=== PATIENT | male | born 1965 | race American Indian/Alaskan Native ===

== ENCOUNTER 2018-03-01 15:57 | Inpatient (IN) | payer BC ==
[2018-03-01 15:57] VITALS: BMI 25.8
--- NOTE | 2018-03-01 16:11 | C.PDOC ---
History Of Present Illness 52 y/o male with history of HTN, Asthma, previous TB presents to ED with c/o sob and tactile fever since this morning. He denies any chest pain. SOB is not similiar to previous asthma attacks. No PND orthopnea or leg swelling. Patient speaking in full sentences and denies cough, congestion, body aches, neck stiffness, leg swelling, recent travel, trauma, dysuria, abdominal pain or any other complaints at this time. Patient non smoker with no history of Stroke or [place]. PMD: Dr. Noguera <Lio Coombs - Last Filed: 03/01/18 18:53> History Per: Patient History/Exam Limitations: no limitations Onset/Duration Of Symptoms: Days Current Symptoms Are (Timing): Still Present <Lio Coombs - Last Filed: 03/01/18 18:53> <Angel Washington - Last Filed: 03/01/18 20:30> Time Seen by Provider: 03/01/18 16:10 Chief Complaint (Nursing): Shortness Of Breath Past Medical History Reviewed: Historical Data, Nursing Documentation, Vital Signs Vital Signs: Last Vital Signs Temp 98.8 F 03/01/18 16:07 Pulse 113 H 03/01/18 16:07 Resp 23 03/01/18 16:07 BP 178/100 H 03/01/18 16:07 Pulse Ox 94 L 03/01/18 16:07 - Medical History PMH: Asthma, Fractures, HTN Surgical History: No Surg Hx - [facility] Procedures CLOSED ENDOSCOPIC BIOPSY OF LUNG (11/18/13) THORACENTESIS (11/18/13) VENOUS CATHETERIZATION NEC (11/18/13) Family History: States: No Known Family Hx - Social History Hx Tobacco Use: No Hx Alcohol Use: No Hx Substance Use: No - Immunization History Hx Tetanus Toxoid Vaccination: No Hx Influenza Vaccination: No Hx Pneumococcal Vaccination: No <Lio Coombs - Last Filed: 03/01/18 18:53> Vital Signs: Last Vital Signs Temp 98.8 F 03/01/18 16:07 Pulse 119 H 03/01/18 19:09 Resp 29 H 03/01/18 19:09 BP 180/99 H 03/01/18 19:09 Pulse Ox 97 03/01/18 19:09 - [facility] Procedures CLOSED ENDOSCOPIC BIOPSY OF LUNG (11/18/13) THORACENTESIS (11/18/13) VENOUS CATHETERIZATION NEC (11/18/13) <Angel Washington - Last Filed: 03/01/18 20:30> Review Of Systems Constitutional: Positive for: Fever. Negative for: Chills, Sweats Eyes: Negative for: Pain ENT: Negative for: Nose Congestion, Mouth Pain Cardiovascular: Negative for: Chest Pain, Palpitations Respiratory: Positive for: Shortness of Breath. Negative for: Cough, SOB with Excertion, Wheezing Gastrointestinal: Negative for: Nausea, Vomiting, Constipation, Melena Genitourinary: Negative for: Dysuria, Frequency, Hematuria, Scrotal Pain Musculoskeletal: Negative for: Neck Pain Skin: Negative for: Rash Neurological: Negative for: Weakness, Headache <Lio Coombs - Last Filed: 03/01/18 18:53> Physical Exam - Physical Exam Appears: Non-toxic, No Acute Distress Skin: Warm, Dry, No Rash Head: Atraumatic, Normacephalic Eye(s): bilateral: Normal Inspection Oral Mucosa: Moist Neck: Normal ROM, Supple, Other (no meningeal signs) Cardiovascular: Rhythm Regular (tachy) Respiratory: Normal Breath Sounds, No Rales, No Rhonchi, No Wheezing Gastrointestinal/Abdominal: Soft, No Tenderness, No Guarding, No Rebound Extremity: Normal ROM, No Pedal Edema, Capillary Refill (<2 seconds) Neurological/Psych: Oriented x3, Normal Speech (Speaking in full sentences), Normal Cognition <Lio Coombs - Last Filed: 03/01/18 18:53> ED Course And Treatment - Laboratory Results Result Diagrams: 03/01/18 17:08 03/01/18 17:08 O2 Sat by Pulse Oximetry: 94 (RA) <Lio Coombs - Last Filed: 03/01/18 18:53> - Laboratory Results Result Diagrams: 03/01/18 17:08 03/01/18 17:08 <Angel Washington - Last Filed: 03/01/18 20:30> Medical Decision Making Medical Decision Makin yr old male w/ hx of asthma, tb, htn presents w/ sob and subjective fevers. Dimer ordered given Tachy to rule out PE, Likely viral URI vs PNA vs PE. NO CP. No SHARMA, orthopnea or PND. No drug use. Plan: CXR, ECG, Flu test, Blood work, IV fluids ECG: Sinus Tachycardia @115 BPM. NO STEMI +FLU Signed out to Dr. Washington pending CT, Re-eval. <Lio Coombs - Last Filed: 03/01/18 18:53> Disposition <Lio Coombs - Last Filed: 03/01/18 18:53> Discussed With : Moreno Noguera Doctor Will See Patient In The: Hospital Counseled Patient/Family Regarding: Diagnosis - Disposition Disposition Time: 20:29 <Angel Washington - Last Filed: 03/01/18 20:30> - Disposition Disposition: HOSPITALIZED Condition: STABLE Forms: [employer] ([place]) - Clinical Impression Clinical Impression: Pleural effusion, Hypotension, Influenza - Scribe Statement The provider has reviewed the documentation as recorded by the Linibryan Resendiz All medical record entries made by the Linibryan were at my direction and personally dictated by me. I have reviewed the chart and agree that the record accurately reflects my personal performance of the history, physical exam, medical decision making, and the department course for this patient. I have also personally directed, reviewed, and agree with the discharge instructions and disposition. <Lio Coombs - Last Filed: 03/01/18 18:53>
[2018-03-01] MEDS ORDERED: Sodium Chloride 0.9% 1,000 ML IV SCH (16:30)
[2018-03-01] MEDS ORDERED: Sodium Chloride 0.9% 1,000 ML ONE (16:57)
[2018-03-01 17:14] LABS: BASO % 0.6 % (0.0-2.0); EOS % 0.5 % (0.0-4.0); HEMOGLOBIN 11.1 g/dL (12.0-18.0); LYMPH # 0.3 K/uL (1.0-4.3); LYMPH % 8.8 % (20.0-40.0); MEAN CELL VOLUME 83.5 fL (80.0-94.0); MEAN CORPUSCULAR HEMOGLOBIN 27.2 pg (27.0-31.0); MEAN CORPUSCULAR HGB CONC 32.6 g/dL (33.0-37.0); MEAN PLATELET VOLUME 7.4 fL (7.2-11.7); MONO # 0.5 K/uL (0.0-0.8); MONO % 14.1 % (0.0-10.0); NEUT # 2.6 K/uL (1.8-7.0); NRBC % 0.3 % (0.0-2.0); PLATELET COUNT 237 K/uL (130-400); RBC 4.07 Mil/uL (4.40-5.90); RED CELL DISTRIBUTION WIDTH 15.5 % (11.5-14.5); WHITE BLOOD COUNT 3.4 K/uL (4.8-10.8)
[2018-03-01 17:25] LABS: BLOOD UREA NITROGEN 12 mg/dL (9-20); CALCIUM 8.5 mg/dl (8.6-10.4); GFR NON-AFRICAN AMERICAN > 60
[2018-03-01 17:26] LABS: ALBUMIN 4.2 g/dL (3.5-5.0); ALT/SGPT 7 U/L (21-72); AST/SGOT 25 U/L (17-59)
[2018-03-01 17:59] LABS: BANDS 5 % (0-2); EOSINOPHIL 1 % (0-4); HYPOCHROMIC SLIGHT; LYMPHOCYTE 7 % (20-40); MICROCYTOSIS SLIGHT; MONOCYTE 8 % (0-10); NEUTROPHIL 79 % (50-75); PLATELET ESTIMATE NORMAL (NORMAL); TOTAL CELLS COUNTED 100
[2018-03-01 18:00] LABS: ROULEAUX FORMATION SLIGHT
--- NOTE | 2018-03-01 18:00 | RAD ---
Date of service: 03/01/2018 HISTORY: sob COMPARISON: Comparison chest and CTA chest dated the 04/01/2015 and 11/17/2013 respectively. TECHNIQUE: Chest PA and lateral FINDINGS: LUNGS: Redemonstrated are stippled calcification in the right lower lung field which corresponds to calcification along the peripheral margin of a chronic pleural fluid collection or empyema and probably some associated pleural thickening. In addition, there is opacification of the left this lung base. This was the site of a large left-sided effusion and atelectasis on prior CT chest and probably represents a similar residual pleural thickening or loculated fluid collection.. Mild biapical pleural thickening PLEURA: As above. No apparent pneumothorax. CARDIOVASCULAR: No significant aortic atherosclerotic calcification present. Normal cardiac size. No pulmonary vascular congestion. OSSEOUS STRUCTURES: No significant abnormalities. VISUALIZED UPPER ABDOMEN: Normal. OTHER FINDINGS: None. IMPRESSION: Redemonstrated are stippled calcification in the right lower lung field which corresponds to calcification along the peripheral margin of a chronic pleural fluid collection or empyema and probably some associated pleural thickening. In addition, there is opacification of the left this lung base. This was the site of a large left-sided effusion and atelectasis on prior CT chest and probably represents a similar residual pleural thickening or loculated fluid collection..
[2018-03-01] MEDS ORDERED: Iodixanol 320 MG/ML 100 ML BOTTLE IV ONE (18:02)
[2018-03-01] MEDS ORDERED: Labetalol 25mg/5ml Syringe IVP STA (18:22)
[2018-03-01] MEDS ORDERED: Labetalol 5mg/ml (4ml) ONE (18:31)
[2018-03-01] MEDS ORDERED: Albuterol HFA 90 mcg/actuation (8 g) IH PRN (21:32)
[2018-03-01] MEDS ORDERED: Albuterol 0.083% Inhal Sol (2.5 mg/3 mL) UD INH PRN (21:32)
[2018-03-01 23:01] VITALS: RESP 20
--- NOTE | 2018-03-02 09:49 | CP.PCM.CON ---
History of Present Illness - History of Present Illness History of Present Illness: complaining of shortness of breath and runny nose 52-year-old male with history of pulmonary TB , asthma and hypertension who presented to emergency room complaining of shortness of breath and fever. Patient found to have influenza A. infection. Review of Systems - Review of Systems All systems: reviewed and no additional remarkable complaints except (shortness of breath and fever) Past Patient History - Infectious Disease Hx of Infectious Diseases: None - Tetanus Immunizations Tetanus Immunization: Unknown - Past Medical History & Family History Past Medical History?: Yes - Past Social History Smoking Status: Never Smoked - CARDIAC Hx Hypertension: Yes - PULMONARY Hx Asthma: Yes - NEUROLOGICAL Hx Neurological Disorder: No - HEENT Hx HEENT Problems: No - ENDOCRINE/METABOLIC Hx Endocrine Disorders: No - HEMATOLOGICAL/ONCOLOGICAL Hx Blood Disorders: No - INTEGUMENTARY Hx Dermatological Problems: No - MUSCULOSKELETAL/RHEUMATOLOGICAL Hx Falls: No Hx Fractures: Yes - GASTROINTESTINAL Hx Gastrointestinal Disorders: No - GENITOURINARY/GYNECOLOGICAL Hx Genitourinary Disorders: No - PSYCHIATRIC Hx Substance Use: No - SURGICAL HISTORY Hx Surgeries: Yes Hx Orthopedic Surgery: Yes Other/Comment: right hand/ wrist surgery - ANESTHESIA Hx Anesthesia: Yes Hx Anesthesia Reactions: No Hx Malignant Hyperthermia: No Meds Allergies/Adverse Reactions: Allergies Allergy/AdvReac Type Severity Reaction Status Date / Time moxifloxacin Allergy Intermediate RASH Verified 03/01/18 16:10 - Medications Medications: Current Medications Acetaminophen (Tylenol 325mg Tab) 650 mg PO Q6 PRN PRN Reason: Fever >100.4 F Last Admin: 03/02/18 01:13 Dose: 650 mg Albuterol (Ventolin Hfa 90 Mcg/Actuation (8 G)) 2 puff IH RQ4 PRN PRN Reason: Shortness of Breath Albuterol Sulfate (Albuterol 0.083% Inhal Lyly (2.5 Mg/3 Ml) Ud) 2.5 mg INH RQ6 PRN PRN Reason: Shortness of Breath Enoxaparin Sodium (Lovenox) 40 mg SC DAILY [facility] Sodium Chloride (Sodium Chloride 0.9%) 1,000 mls @ 100 mls/hr IV .Q10H KAVITA Last Admin: 03/01/18 17:28 Dose: 100 mls/hr Metoprolol Succinate (Toprol Xl) 50 mg PO DAILY [facility] Oseltamivir Phosphate (Tamiflu Cap) 75 mg PO BID [facility]; Protocol Stop: 03/06/18 21:33 Physical Exam - Head Exam Head Exam: ATRAUMATIC, NORMOCEPHALIC - ENT Exam ENT Exam: Mucous Membranes Moist - Respiratory Exam Respiratory Exam: Clear to Auscultation Bilateral - Cardiovascular Exam Cardiovascular Exam: REGULAR RHYTHM - GI/Abdominal Exam GI & Abdominal Exam: Normal Bowel Sounds Results - Vital Signs Recent Vital Signs: Last Vital Signs Temp 99.8 F H 03/01/18 23:25 Pulse 95 H 03/01/18 23:25 Resp 20 03/01/18 23:25 BP 170/94 H 03/01/18 23:25 Pulse Ox 95 03/02/18 01:00 - Labs Result Diagrams: 03/01/18 17:08 03/01/18 17:08 Labs: Laboratory Results - last 24 hr 03/01/18 03/01/18 03/01/18 16:59 17:08 17:08 WBC 3.4 L RBC 4.07 L Hgb 11.1 L Hct 34.0 L MCV 83.5 MCH 27.2 MCHC 32.6 L RDW 15.5 H Plt Count 237 MPV 7.4 Neut % (Auto) 76.0 H Lymph % (Auto) 8.8 L Ness % (Auto) 14.1 H Eos % (Auto) 0.5 Baso % (Auto) 0.6 Neut # (Auto) 2.6 Lymph # (Auto) 0.3 L Ness # (Auto) 0.5 Eos # (Auto) 0.0 Baso # (Auto) 0.0 Neutrophils % (Manual) 79 H Band Neutrophils % 5 H Lymphocytes % (Manual) 7 L Monocytes % (Manual) 8 Eosinophils % (Manual) 1 Platelet Estimate Normal Hypochromasia (manual) Slight Microcytosis (manual) Slight Rouleaux Slight D-Dimer, Quantitative Sodium 136 Potassium 5.0 Chloride 100 Carbon Dioxide 28 Anion Gap 14 BUN 12 Creatinine 1.1 Est GFR ( Amer) > 60 Est GFR (Non-Af Amer) > 60 Random Glucose 104 Calcium 8.5 L Total Bilirubin 0.8 AST 25 ALT 7 L D Alkaline Phosphatase 69 Total Protein 8.3 Albumin 4.2 Globulin 4.1 H Albumin/Globulin Ratio 1.0 Influenza Typ A,B (EIA) Pos for influenza a H 03/01/18 17:15 WBC RBC Hgb Hct MCV MCH MCHC RDW Plt Count MPV Neut % (Auto) Lymph % (Auto) Ness % (Auto) Eos % (Auto) Baso % (Auto) Neut # (Auto) Lymph # (Auto) Ness # (Auto) Eos # (Auto) Baso # (Auto) Neutrophils % (Manual) Band Neutrophils % Lymphocytes % (Manual) Monocytes % (Manual) Eosinophils % (Manual) Platelet Estimate Hypochromasia (manual) Microcytosis (manual) Rouleaux D-Dimer, Quantitative 662 H Sodium Potassium Chloride Carbon Dioxide Anion Gap BUN Creatinine Est GFR ( Amer) Est GFR (Non-Af Amer) Random Glucose Calcium Total Bilirubin AST ALT Alkaline Phosphatase Total Protein Albumin Globulin Albumin/Globulin Ratio Influenza Typ A,B (EIA) Assessment & Plan (1) Influenza Status: Acute Comment: on Tamiflu. Droplet isolation. continue nebulizer treatment (2) Asthma Status: Acute
[2018-03-02] MEDS ORDERED: Enoxaparin 40 mg Syringe SC SCH (10:00)
[2018-03-02] MEDS ORDERED: Metoprolol Succinate 50 mg XL Tab PO SCH (10:00)
--- NOTE | 2018-03-02 12:10 | CT ---
Date of service: 03/01/2018 PROCEDURE: CT Chest with contrast (Pulmonary Angiogram) HISTORY: D-dimer the 6 the the at the base of the heart history very when the outside the RO S1 talk about it with however with a recannulated though all no petechial elevation, sob COMPARISON: Comparison made with chest radiograph earlier same day. Comparison also made with CTA chest dated 11/09/2013 TECHNIQUE: Axial computed tomography images were obtained of the chest in the pulmonary arterial phase of enhancement. Coronal and sagittal reformatted images were created and reviewed. Intravenous contrast dose: 100 cc Visipaque 320 Radiation dose: Total exam DLP = 389.39 mGy-cm. This CT exam was performed using one or more of the following dose reduction techniques: Automated exposure control, adjustment of the mA and/or kV according to patient size, and/or use of iterative reconstruction technique. FINDINGS: PULMONARY ARTERIES: Unremarkable. No pulmonary embolism. Pulmonary trunk appears dilated measuring approximately 3.5 cm; rule out underlying mild pulmonary arterial hypertension.. AORTA: No acute findings. No thoracic aortic aneurysm. Ascending thoracic aorta measures approximately 3.4 cm and descending thoracic aorta measures approximately 2.4 cm. Minor aortic atherosclerotic calcification or mural plaque present. LUNGS: There is what appears to represent chronic pleural thickening right lung base with a peripheral crescentic stable calcifications. Findings likely due to residual of a chronic loculated pleural effusion or empyema that has evolved into granulation tissue with localized pleural thickening. There is also a chronic appearing loculated effusion left lung base decreased in size from prior study. Mild bibasilar atelectasis left greater than right. There are nodular density seen in the left lung apex the 1st measuring approximately 13 mm and the 2nd more inferior and posteriorly located nodule measuring 10 mm. The nodule is associated with the stranding scarring and fibrosis some of which extend to the pleural surfaces. The noted small cavitary lesion left lung apex resolved. Similar foci right lung apex. PLEURAL SPACES: As above. No evidence of pneumothorax HEART: Heart appears enlarged.. No significant pericardial effusion. LYMPH NODES: No lymphadenopathy. Trachea is midline and patent with no obvious endoluminal lesions. BONES, CHEST WALL: Mild multilevel degenerative spondylosis of the thoracic spine OTHER FINDINGS: Low-attenuation lesion measuring 15.6 mm within the posterior margin of the spleen is present. This focus is of uncertain etiology though could represent a hemangioma. Other underlying lesion not excluded. The IMPRESSION: chronic pleural thickening right lung base with a peripheral crescentic stable calcifications. Findings likely due to residual of a chronic loculated pleural effusion or empyema that has evolved into granulation tissue with localized pleural thickening. There is also a chronic appearing loculated effusion left lung base decreased in size from prior study. Mild bibasilar atelectasis left greater than right. There are nodular density seen in the left lung apex the 1st measuring approximately 13 mm and the 2nd more inferior and posteriorly located nodule measuring 10 mm.. The nodule is associated with the stranding scarring and fibrosis some of which extend to the pleural surfaces. The noted small cavitary lesion left lung apex resolved. Similar foci right lung apex. Followup the CT scan in 3 months recommended to assess stability of these nodular densities and exclude underlying neoplasm. Note that this report was placed in PA review folder for followup Low attenuation lesion within the splenic parenchyma of uncertain etiology. Follow-up CT scan at interval could be performed to assess stability.
[2018-03-02] MEDS ORDERED: Albuterol-Ipratrop 3 mg / 0.5 (3 ml) UD INH PRN (13:30)
[2018-03-02] MEDS ORDERED: Influenza Vaccine 60 MCG/0.5 ML SYR (3 yr & up) IM ONE (16:25)
[2018-03-02] MEDS ORDERED: Pneumococcal 23-Valent Vaccine IM ONE (16:25)
[2018-03-02 17:11] VITALS: BP 160/90; PULSE 100
[2018-03-02 18:00] VITALS: TEMP 98.9; O2SAT 96
--- NOTE | 2018-03-02 19:14 | CP.PCM.HP ---
Past Patient History - Infectious Disease Hx of Infectious Diseases: None - Tetanus Immunizations Tetanus Immunization: Unknown - Past Medical History & Family History Past Medical History?: Yes - Past Social History Smoking Status: Never Smoked - CARDIAC Hx Hypertension: Yes - PULMONARY Hx Asthma: Yes - NEUROLOGICAL Hx Neurological Disorder: No - HEENT Hx HEENT Problems: No - ENDOCRINE/METABOLIC Hx Endocrine Disorders: No - HEMATOLOGICAL/ONCOLOGICAL Hx Blood Disorders: No - INTEGUMENTARY Hx Dermatological Problems: No - MUSCULOSKELETAL/RHEUMATOLOGICAL Hx Falls: No Hx Fractures: Yes - GASTROINTESTINAL Hx Gastrointestinal Disorders: No - GENITOURINARY/GYNECOLOGICAL Hx Genitourinary Disorders: No - PSYCHIATRIC Hx Substance Use: No - SURGICAL HISTORY Hx Surgeries: Yes Hx Orthopedic Surgery: Yes Other/Comment: right hand/ wrist surgery - ANESTHESIA Hx Anesthesia: Yes Hx Anesthesia Reactions: No Hx Malignant Hyperthermia: No Meds Home Medications: Home Medication List Medication Instructions Recorded Confirmed Type Losartan [Cozaar] 50 mg PO DAILY #30 tab 03/02/18 Rx Metoprolol Succinate XL [Toprol XL] 50 mg PO DAILY #30 tab 03/02/18 Rx Oseltamivir [Tamiflu Cap] 75 mg PO BID #10 cap 03/02/18 Rx Allergies/Adverse Reactions: Allergies Allergy/AdvReac Type Severity Reaction Status Date / Time moxifloxacin Allergy Intermediate RASH Verified 03/01/18 16:10 Results - Vital Signs Recent Vital Signs: Last Vital Signs Temp 98.9 F 03/02/18 15:00 Pulse 100 H 03/02/18 17:10 Resp 20 03/02/18 15:00 BP 160/90 H 03/02/18 17:10 Pulse Ox 96 03/02/18 15:00 - Labs Result Diagrams: 03/01/18 17:08 03/01/18 17:08
--- NOTE | 2018-03-04 10:28 | HP ---
CHIEF COMPLAINT: Cough and shortness of breath x2 days. HISTORY OF PRESENT ILLNESS: This is a 52-year-old -[place] male, well known to me with history of hypertension, bronchial asthma, treated for pulmonary TB, and he has been and he has been having fever for last one day. Along with that he is having chills, rigors, body aches, tiredness, anorexia, malaise, and fatigue. The patient had nasal canula secretions. He denied any chest pain, abdominal pain, nausea, vomiting, or diarrhea. He denies any history of polyuria, polydipsia, or polyphagia. He denies any history of hematuria or pyuria. He denies any sneezing, itchy eyes, itchy nose. There is no history of trauma, fall, or loss of consciousness. No history of seizure like activity. The patient has fever, but he is unable to quantify. PAST MEDICAL HISTORY: Pulmonary TB, hypertension. SOCIAL HISTORY: He smokes. He drinks. FAMILY HISTORY: Negative for pulmonary TB . CURRENT MEDICATIONS: Multivitamin, losartan, Toprol XL, and albuterol sulfate. Past medical history as above. PHYSICAL EXAMINATION: GENERAL: A middle-aged male, in no acute distress, secretions. VITAL SIGNS: BP 160/90, pulse 100, respiratory rate 20, temperature 98.9. SKIN: No rashes. No bruises. No purpura. No petechiae. HEENT: Atraumatic and normocephalic. Negative PERRLA. Negative jaundice. Extraocular movements are intact. NECK: Supple. No JVD. No lymph node. No thyromegaly. CHEST WALL: Bilateral symmetrical expansion. LUNGS: Clear. CARDIOVASCULAR SYSTEM: S1 and S2 regular. ABDOMEN: Soft and nontender. Bowel sounds are positive. RECTAL: No masses or bleeding. EXTREMITIES: No clubbing, cyanosis, or edema. CENTRAL NERVOUS SYSTEM: Awake, alert, and oriented x3. Cranial nerves II through XII are normal. Power 5/5 x4. Plantars are downgoing. ASSESSMENT: 1. Flu. 2. Dehydration. 3. Hypertension. 4. Old pulmonary tuberculosis. PLAN: Continue Tamiflu and discharge patient. The patient is hemodynamically stable, and he will comply with medication. Moreno Noguera MD [facility] # [id number]
== END 2018-03-02 18:28 | disposition home or self-care (01) | DRG 194 ==
LOC: C.ER 15:57 → C.9E 20:30 → C.6T 21:31
PROVIDERS: ADMIT Internal Medicine; ATTEND Internal Medicine
DX: J10.1 Influenza due to other identified influenza virus with other respiratory manifestations (principal); J90 Pleural effusion, not elsewhere classified; E86.0 Dehydration; F17.200 Nicotine dependence, unspecified, uncomplicated; I10 Essential (primary) hypertension; J45.909 Unspecified asthma, uncomplicated; I95.9 Hypotension, unspecified; Z86.11 Personal history of tuberculosis; Z79.899 Other long term (current) drug therapy

== ENCOUNTER 2018-05-22 06:33 | Day surgery (SDC) | payer BC ==
[2018-05-21 14:00] VITALS: BMI 24.7
[2018-05-22 07:05] VITALS: PULSE 80; RESP 20; TEMP 97
[2018-05-22] MEDS ORDERED: Lactated Ringer's 1,000 ML IV ONE (08:30)
[2018-05-22] MEDS ORDERED: Propofol 10 mg/ml Inj (20 ML) ONE (08:31)
--- NOTE | 2018-05-22 08:33 | CP.SDSHP ---
Same Day Surgery H & P - History Proposed Procedure: colonoscopy Pre-Op Diagnosis: average risk screening - Previous Medical/Surgical History Cardiac: Hypertension Pulmonary: Asthma Previous Surgical History: carpal tunnel - Allergies Allergies: Allergies moxifloxacin Allergy (Intermediate, Verified 05/21/18 14:00) RASH - Current Medications Current Medications: reviewed, per reconciliation - Physical Exam General Appearance: wdwn nad Vital Signs: Vital Signs 05/22/18 06:58 Temperature 97 F L Pulse Rate 80 Respiratory 20 Rate Blood Pressure 191/89 H O2 Sat by Pulse 97 Oximetry Mental Status: Alert & Oriented x3 Heart: WNL Lungs: WNL GI: WNL - {Optional Preform as Required} Abdomen: WNL - Impression Impression: screening colonoscopy Pt. Evaluated Today:Candidate for Anesthesia & Procedure: Yes - Date & Time Date: 05/22/18 Time: 08:33 Short Stay Discharge - Short Stay Discharge Admitting Diagnosis/Reason for Visit: SCREENING Disposition: HOME/ ROUTINE
[2018-05-22 09:09] VITALS: O2SAT 98
[2018-05-22 09:38] VITALS: BP 126/73
== END 2018-05-22 10:43 | disposition home or self-care (01) ==
LOC: C.ENDO 06:33
PROVIDERS: ATTEND Internal Medicine Gastroenterology
DX: Z12.11 Encounter for screening for malignant neoplasm of colon (principal); K64.0 First degree hemorrhoids; I10 Essential (primary) hypertension; J45.909 Unspecified asthma, uncomplicated
CPT/HCPCS: 45378; J2001; J2704; J7120